=== PATIENT | female | born 1975 | race Caucasian/White ===

== ENCOUNTER → 2017-07-16 | Day surgery (SDC) | payer OTHER ==
[2017-06-23 08:32] VITALS: Ht 160 cm; Wt 86.4 kg
--- NOTE | 2017-07-15 08:27 | History and Physical: Surg Cnt ---
History & Physical Date Jul 15, 2017. Chief Complaint sinusitis History of Present Illness The patient is a 41 year old female with complaints of recurrent and chronic sinusitis Past Medical/Surgical History Medical Problems: (1) Depressive Disorder Nec (2) Diabetes-Antepartum (3) Dysmenorrhea (4) Esophageal Reflux (5) History Of Tobacco Use (6) Migraine Unspecified W/O Intract Mgrn W/O Status Migrainosus (7) Obesity, Nos (8) Uterine Leiomyoma Nos Surgical Problems: (1) Tubal Ligation Status Additional History Hepatic Disease: No Endocrine Disorder: No Kidney Disease: No Hypertension: No Heart Disease: No Bleeding Tendencies: No Infectious Diseases: No Allergies Coded Allergies: Bupropion (Verified Allergy, Unknown, HIVES, 06/23/17) Shellfish (Verified Allergy, Unknown, ITCHY, LIPS SWELL, 06/23/17) Home Medications Scheduled Cholecalciferol (Vitamin D), 1 CAP PO QAM Levothyroxine Sodium (Levothyroxine Sodium), 1 TAB PO QAM Ranitidine Hcl (Zantac), 150 MG PO QAM Triamterene/Hctz (Dyazide 37.5MG/25MG *), 1 TAB PO QAM Physical Examination Skin: warm/dry, no rash Eyes: normal inspection, EOMI, sclerae normal ENT: normal ENT inspection, pharynx normal Head: normocephalic, atraumatic Neck: supple, no adenopathy, trachea midline Respiratory/Chest: lungs clear, normal breath sounds, no respiratory distress Cardiovascular: regular rate, rhythm, no edema, no murmur Abdomen / GI: normal bowel sounds, non tender Back: normal inspection Extremities: normal inspection, normal range of motion Neurologic/Psych: no motor/sensory deficits, alert, normal reflexes, oriented x 3 Diagnosis chronic sinusitis Plan of Treatment endoscopic sinus surgery
[~2017-07-16] VITALS: Ht 160 cm; Wt 86.4 kg
[~2017-07-16] MED LIST: ACETAMINOPHEN 325 MG TAB PO PRN; AMOX875T PO; ATROPINE SULFATE 0.1 MG/ML 5ML SYR IV PRN; CEFAZOLIN 1000MG/55 ML D5W IV SCH; CEFAZOLIN 2000 MG/60 ML D5W IV SCH; CHOL200010 PO; DEXAMETHASONE SOD INJ 4 MG/ML VIAL ONE; DYZ PO; ESMOLOL HCL 10 MG/ML 10 ML VIAL ONE; EpHEDrine SULFATE INJ 50 MG/ML AMP IV PRN; EpINEphrine INJ 1MG/ML AMP 1 MG/ML AMP ONE; FENTANYL CITRATE INJ 50 MCG/1 ML 2 ML VIAL IV PRN; FENTANYL CITRATE INJ 50 MCG/1 ML 2 ML VIAL ONE; HYDROmorphone INJ 1 MG/ML SYR IV PRN; LACTATED RINGER'S 1000ML 1,000 ML IV SCH; LEVO112T4 PO; LIDO 2%/EPINEPHRINE 1:100000 20 ML VIAL INFIL ONE; LIDOCAINE 4% MPF SOAK 5 ML = 1 DOSE TOP ONE; LIDOCAINE HCL 2% 2 ML VIAL (20MG/ML) ONE; MIDAZOLAM HCL 1 MG/ML 2ML VIAL ONE; ONDA4TAB65 PO; ONDANSETRON INJ 2 MG/ML 2 ML VIAL IV PRN; ONDANSETRON INJ 2 MG/ML 2 ML VIAL ONE; PROPOFOL IV EMULSION 10 MG/ML 20 ML VIAL IV ONE; RANI150T3 PO; SODIUM CHLORIDE 0.9% 1000ML 1,000 ML IV SCH; TRAM-10 PO; TRAMADOL HCL 50 MG TAB ONE; TRIATAB3 PO
--- NOTE | 2017-07-16 07:00 | History & Physical Bridge Note ---
H&P Re-Evaluation Bridge Note: I have examined the patient, reviewed the History & Physical and in the interval since the performance of the History & Physical I have noted the following changes of clinical significance: No changes noted
--- NOTE | 2017-07-16 09:42 | [facility] Operative Report ---
Operative Report Operative Date Jul 16, 2017. Pre-Operative Diagnosis Chronic Sinusitis Post-Operative Diagnosis same Procedure(s) Performed Endoscopic Sinus Surgery, Right & Left Frontal Sinuses, Right & Left Maxillatry Sinuses, Right & Left Total Ethmoid Sinuses Surgeon Dr. Carmen Foster Analysis Lead Surgeon(s) 0 Estimated Blood Loss 50CC Findings Occluded ostiomeatal complexes with mucosal thickening obstructing the nasal frontal ducts Specimens NONE Drains none Anesthesia Gen. endotracheal Complication(s) None Disposition Recovery Room / PACU Implants 2 propel implants Indications 41-year-old female with recurrent and chronic sinusitis significant frontal headaches anosmia failed medical management requesting definitive treatment Description of Procedure The patient was brought to the operating room and placed in the supine position. General endotracheal anesthesia was induced. [employer] device was calibrated and used for the entire procedure. She was draped in the usual sterile manner. The nose was decongested using cottonoids with the topical solution of 4 mL of 4% Xylocaine mixed with 1 mL of epinephrine. Injection of 2 % Xylocaine with 1 100,000 strength epinephrine was also used. The right maxillary sinus was cannulated with the guidewire and dilated using the 6 mm balloon as was the left maxillary sinus. The left nasal frontal duct was cannulated with the guidewire and dilated using the 6 mm balloon with [employer] computer guidance. The guidewire was left in place as a marker. Frontal sinusotomy was performed by using the shaver couple with the [employer] device opening up the Phani nasi cell removing the anterior wall and then the posterior wall to expose the guidewire and the frontal sinus orifice keeping the mucosa there are intact. At this point total ethmoidectomy was performed opening up the bullae ethmoidalis going through the ground lamella into the posterior ethmoid air cells delineating the skull base superiorly and lamina papyracea laterally exonerating all the posterior and then all the anterior ethmoid air cells up to the previously dilated nasal frontal duct. The nasal frontal duct was re-dilated with the balloon. The maxillary sinus was opened by connecting the dilated maxillary ostia to a rather large posterior accessory ostia at the fontanelle of the maxillary sinus. The right frontal sinusotomy total ethmoidectomy and maxillary sinusotomy was performed in a similar manner. Propel stents were placed. The patient tolerated procedure well and was taken to the recovery area in satisfactory condition I attest to the content of the Intraoperative Record and any orders documented therein. Any exceptions are noted below.
--- NOTE | 2017-07-16 09:46 | Discharge Instructions-SurgCtr ---
Discharge Instructions Date of Service Jul 16, 2017. Visit Reason for Visit: Chronic Sinusitis Discharge Discharge Diagnosis / Problem: same Discharge Goals Goal(s): Improve disease control Activity Recommendations Activity Limitations: per Instructions/Follow-up section Anesthesia . Post Anesthesia Instructions: If you have had General Anesthesia or IV Sedation: * Do not drive today. * Resume driving when surgeon permits. * Do not make important decisions or sign legal documents today. * Call surgeon for: 1. Temperature elevations greater than 101 degrees F. 2. Uncontrollable pain. 3. Excessive bleeding. 4. Persistent nausea and vomiting. 5. Medication intolerance (nausea, vomiting or rash). * For nausea and vomiting use only clear liquids such as: tea, soda, bouillon until nausea subsides, then gradually increase diet as tolerated. * If you have any concerns or questions, call your surgeon's office. If physician is unavailable and it is an emergency, call 911 or go to the nearest emergency room. . Instructions / Follow-Up Instructions / Follow-Up ACTIVITY RECOMMENDATIONS: * Being up and around is good, but no strenuous activity, heavy lifting or physical exertion for one week. * Keep your head elevated 30 degrees when lying down or sleeping. * Do not blow your nose for 48 hours, sniff back instead. * Avoid hot showers. OVER THE COUNTER MEDICATIONS: * You may use Tylenol * Avoid aspirin or aspirin containing products, e.g. as they may increase bleeding. SPECIAL CARE INSTRUCTIONS: * Expect to have bloody drainage from your nose and/or down your throat for one to three days. Change drip pad as needed. * Begin irrigating your nose with saline solution today, at least six to ten times per day and sniff back to help remove old clots or crust. * You may experience nasal and facial congestion, pain and pressure, this is normal. * Please call with any significant and/or progressive pain, redness, swelling around the eyes, visual changes, fever of 101.5 degrees F, active bleeding or any problems or concerns. * If active bleeding occurs, spray the nose three times at one minute intervals with Afrin spray and call or cell phone: . If unable to reach the doctor, go to the nearest Emergency Department. Special Diet: * Avoid extremely hot fluids. FOLLOW UP VISIT: Follow-up Visit with Dr. Foster If not already scheduled, please call to schedule. Diet Recommendations Home Diet: no limitations Procedures Procedures Performed: Endoscopic Sinus Surgery, Right & Left Frontal Sinuses, Right & Left Maxillatry Sinuses, Right & Left Total Ethmoid Sinuses Pending Studies Studies pending at discharge: no Medical Emergencies . Who to Call and When: Medical Emergencies: If at any time you feel your situation is an emergency, please call 911 immediately. . Non-Emergent Contact Non-Emergency issues call your: Primary Care Provider . . "Provider Documentation" section prepared by Jewels Foster. . [place] Drug Monitoring Program Search Results: no issues identified
[2017-07-16 10:11] VITALS: TEMP 36.6
--- NOTE | 2017-07-16 10:46 | Anesthesia Progress Nt - [facility] ---
Anesthesia Post Op Note Date & Time Jul 16, 2017 at 10:45 Vital Signs Pain Intensity: 8.0 Vital Signs Past 12 Hours Date Time Temp Pulse Resp B/P (MAP) Pulse Ox O2 Delivery O2 Flow Rate FiO2 07/16/17 10:31 96 125/85 (98) 95 Room Air 07/16/17 10:12 103 13 96 07/16/17 10:12 103 13 07/16/17 10:11 36.6 100 12 124/79 96 Room Air 07/16/17 10:11 124/79 07/16/17 10:07 100 7 96 07/16/17 10:07 101 7 07/16/17 10:06 126/81 07/16/17 10:02 101 7 99 07/16/17 10:02 101 7 07/16/17 10:01 121/86 07/16/17 09:57 102 4 100 07/16/17 09:57 101 4 07/16/17 09:56 121/84 07/16/17 09:52 103 4 07/16/17 09:52 103 4 100 07/16/17 09:51 124/83 07/16/17 09:47 106 7 07/16/17 09:47 107 7 100 07/16/17 09:46 118/80 07/16/17 09:42 105 2 07/16/17 09:42 106 2 100 07/16/17 09:41 119/79 07/16/17 09:38 110/75 07/16/17 09:37 36.2 99 12 110/ (75) 9 Mask 4 07/16/17 07:28 36.7 83 16 115/77 (90) 97 Room Air Notes Mental Status: alert / awake / arousable, participated in evaluation Pt Amnestic to Procedure: Yes Nausea / Vomiting: adequately controlled Pain: adequately controlled, improving with treatment Airway Patency, RR, SpO2: stable & adequate BP & HR: stable & adequate Hydration State: stable & adequate Anesthetic Complications: no major complications apparent
[2017-07-16 10:58] VITALS: BP 122/84; PULSE 94; O2SAT 95
== END | disposition home or self-care (01) ==
LOC: X.SURG 06:55
PROVIDERS: ATTEND Otolaryngology
DX: J32.9 Chronic sinusitis, unspecified (principal); F32.9 Major depressive disorder, single episode, unspecified; K21.9 Gastro-esophageal reflux disease without esophagitis; E66.9 Obesity, unspecified

== ENCOUNTER 2017-07-24 01:29 | Emergency (ER) | payer OTHER ==
[~2017-07-24] VITALS: Ht 160 cm; Wt 91.2 kg
[~2017-07-24 01:29] MED LIST changes: -ACETAMINOPHEN 325 MG TAB PO PRN; -AMOX875T PO; -ATROPINE SULFATE 0.1 MG/ML 5ML SYR IV PRN; -CEFAZOLIN 1000MG/55 ML D5W IV SCH; -CEFAZOLIN 2000 MG/60 ML D5W IV SCH; -DEXAMETHASONE SOD INJ 4 MG/ML VIAL ONE; -ESMOLOL HCL 10 MG/ML 10 ML VIAL ONE; -EpHEDrine SULFATE INJ 50 MG/ML AMP IV PRN; -EpINEphrine INJ 1MG/ML AMP 1 MG/ML AMP ONE; -FENTANYL CITRATE INJ 50 MCG/1 ML 2 ML VIAL IV PRN; -FENTANYL CITRATE INJ 50 MCG/1 ML 2 ML VIAL ONE; -HYDROmorphone INJ 1 MG/ML SYR IV PRN; -LACTATED RINGER'S 1000ML 1,000 ML IV SCH; -LIDO 2%/EPINEPHRINE 1:100000 20 ML VIAL INFIL ONE; -LIDOCAINE 4% MPF SOAK 5 ML = 1 DOSE TOP ONE; -LIDOCAINE HCL 2% 2 ML VIAL (20MG/ML) ONE; -MIDAZOLAM HCL 1 MG/ML 2ML VIAL ONE; -ONDANSETRON INJ 2 MG/ML 2 ML VIAL IV PRN; -ONDANSETRON INJ 2 MG/ML 2 ML VIAL ONE; -PROPOFOL IV EMULSION 10 MG/ML 20 ML VIAL IV ONE; -SODIUM CHLORIDE 0.9% 1000ML 1,000 ML IV SCH; -TRAMADOL HCL 50 MG TAB ONE; -TRIATAB3 PO
[2017-07-24 01:33] VITALS: TEMP 36.9
[2017-07-24] MEDS ORDERED: SODIUM CHLORIDE 0.9% 1000ML 1,000 ML IV STA (01:51)
[2017-07-24 01:58] VITALS: Ht 160 cm; Wt 91.2 kg
[2017-07-24] MEDS ORDERED: OPTIRAY 320 IV PRN (02:00)
[2017-07-24] MEDS ORDERED: AMPICILLIN/SULBACTAM SOD INJ 3,000 MG in SODIUM CHLORIDE 0.9% 100ML 100 ML IV ONE (02:00)
[2017-07-24 02:38] LABS: BASO % 0.1 %; BASO ABS # 0.02 K/uL (0-0.2); COMPLETE YES; EOS % 1.1 %; HEMATOCRIT 39.3 % (37-47); IG% 0.4 %; LYMPH % 15.2 %; LYMPH ABS # 2.08 K/uL (1.2-3.4); MEAN CELL VOLUME 87.3 fL (80-100); MEAN CORPUSCULAR HGB CONC 34.4 g/dl (32-36); MEAN PLATELET VOLUME 9.2 fL (7.4-10.4); MONO % 7.5 %; NEUT % 75.7 %; PLATELET COUNT 307 K/uL (130-400); WHITE BLOOD COUNT 13.69 K/uL (4.8-10.8)
[2017-07-24 02:48] LABS: INR 0.9 (0.9-1.1); PARTIAL THROMBOPLASTIN RATIO 1.2; PROTHROMBIN TIME (PATIENT) 9.9 SECONDS (9.0-12.0)
[2017-07-24] MEDS ORDERED: TRIATAB3 PO (02:57)
[2017-07-24 03:03] LABS: BUN/CREATININE RATIO 17.3 (10-20); CALCIUM 9.1 mg/dl (8.5-10.1); CREATININE 0.74 mg/dl (0.60-1.20); POTASSIUM 3.5 mmol/L (3.5-5.1)
[2017-07-24 03:06] LABS: ALB/GLOB RATIO 0.8 (0.9-2)
[2017-07-24] MEDS ORDERED: ACETAMINOPHEN 500 MG TAB PO STA (03:19)
[2017-07-24 03:59] VITALS: PULSE 87; O2SAT 99
--- NOTE | 2017-07-24 04:13 | EMERGENCY ROOM VISIT NOTE ---
History First contact with patient: 01:39 Chief Complaint: NASAL PAIN/INJURY Stated Complaint: COMPLICATIONS FROM SINUS SERGERY History of Present Illness The patient is a 41 year old female who presents to the Emergency Room with complaints of fever with right-sided facial pain for the past few days after sinus surgery one week ago by Dr. Foster. Patient states she's had chronic sinusitis. She describes pain as throbbing, 6 out of 10. Nothing makes it better or worse. It does not radiate. She is not currently on antibiotics. Tmax 101 today. Fever started today. She did not call her ENT doctor. Patient denies neck stiffness, chest pain, dyspnea, cough, dysphagia, tongue swelling, dental problems, abdominal pain, vomiting, diarrhea. No injury to the area. Review of Systems See HPI for pertinent positives & negatives. A total of 10 systems reviewed and were otherwise negative. Past Medical/Surgical History Medical Problems: (1) Depressive Disorder Nec (2) Diabetes-Antepartum (3) Dysmenorrhea (4) Esophageal Reflux (5) History Of Tobacco Use (6) Migraine Unspecified W/O Intract Mgrn W/O Status Migrainosus (7) Obesity, Nos (8) Uterine Leiomyoma Nos Surgical Problems: (1) Tubal Ligation Status Social History Smoking Status: Former Smoker Alcohol Use: none Drug Use: none Marital Status: Occupation Status: employed Current/Historical Medications Scheduled Cholecalciferol (Vitamin D), 2,000 UNITS PO QAM Levothyroxine Sodium (Levothyroxine Sodium), 1 TAB PO QAM Ranitidine Hcl (Zantac), 150 MG PO QAM Triamterene/Hctz (Triamterene/Hctz 37.5-25MG), 1 TAB PO QAM Scheduled PRN Ondansetron Hcl (Zofran), 1 TAB PO Q6H PRN for Nausea Tramadol (Ultram), 50 MG PO Q4H PRN for Pain Physical Exam Vital Signs Date Time Temp Pulse Resp B/P (MAP) Pulse Ox O2 Delivery O2 Flow Rate FiO2 07/24/17 02:57 82 20 120/78 98 Room Air 07/24/17 01:33 36.9 102 18 142/92 96 Room Air Physical Exam VITALS: Vitals are noted on the nurse's note and reviewed by myself. Vital signs stable. GENERAL: Pleasant female anxious-appearing, in no acute distress, nondiaphoretic , well-developed well-nourished. SKIN: The skin was without rashes, erythema, edema, or bruising. There is no tenting of the skin. Capillary reflex less than 2 seconds. HEAD: Normocephalic atraumatic. Face: Tender to palpation right zygomatic area. Patient can fully open and close jaw with some minimal discomfort to the right jaw line EARS: External auditory canals clear, tympanic membranes pearly santos without erythema or effusion bilaterally. EYES: Pupils equal round and reactive to light and accommodation. Conjunctivae without injection, sclerae without icterus. Extraocular movements intact. NOSE: Patent, turbinates without inflammation or discharge. Right maxillary sinus tenderness. MOUTH: Mucous membranes moist. Pharynx without erythema or exudate. Uvula midline. Airway patent. Tongue does not deviate. Dental exam: No signs of dental abscess. No Stanton's angina NECK: Supple without nuchal rigidity. Right submandibular lymphadenopathy, no signs of meningitis. No thyromegaly. Cervical spine is nontender. No JVD. HEART: Regular rate and rhythm without murmurs gallops or rubs. LUNGS: Clear to auscultation bilaterally without wheezes, rales or rhonchi. No dullness to percussion. No retractions or accessory muscle use. ABDOMEN: Positive bowel sounds x 4. Normal tympanic percussion. Soft, nontender, without masses or organomegaly. Flores sign negative. No guarding or rebound tenderness. MUSCULOSKELETAL: No muscle atrophy, erythema, or edema noted. NEURO: Patient was alert and oriented to person place and time. Normal sensation to light and sharp touch. No focal neurological deficits. Medical Decision & Procedures Laboratory Results 07/24/17 02:23 Red Blood Count 4.50, Mean Corpuscular Volume 87.3, Mean Corpuscular Hemoglobin 30.0, Mean Corpuscular Hemoglobin Concent 34.4, Mean Platelet Volume 9.2, Neutrophils (%) (Auto) 75.7, Lymphocytes (%) (Auto) 15.2, Monocytes (%) (Auto) 7.5, Eosinophils (%) (Auto) 1.1, Basophils (%) (Auto) 0.1, Neutrophils # (Auto) 10.37, Lymphocytes # (Auto) 2.08, Monocytes # (Auto) 1.02, Eosinophils # (Auto) 0.15, Basophils # (Auto) 0.02 07/24/17 02:23 Test 07/24/17 02:23 07/24/17 02:25 White Blood Count 13.69 K/uL (4.8-10.8) Red Blood Count 4.50 M/uL (4.2-5.4) Hemoglobin 13.5 g/dL (12.0-16.0) Hematocrit 39.3 % (37-47) Mean Corpuscular Volume 87.3 fL (80-100) Mean Corpuscular Hemoglobin 30.0 pg (25-34) Mean Corpuscular Hemoglobin Concent 34.4 g/dl (32-36) Platelet Count 307 K/uL (130-400) Mean Platelet Volume 9.2 fL (7.4-10.4) Neutrophils (%) (Auto) 75.7 % Lymphocytes (%) (Auto) 15.2 % Monocytes (%) (Auto) 7.5 % Eosinophils (%) (Auto) 1.1 % Basophils (%) (Auto) 0.1 % Neutrophils # (Auto) 10.37 K/uL (1.4-6.5) Lymphocytes # (Auto) 2.08 K/uL (1.2-3.4) Monocytes # (Auto) 1.02 K/uL (0.11-0.59) Eosinophils # (Auto) 0.15 K/uL (0-0.5) Basophils # (Auto) 0.02 K/uL (0-0.2) RDW Standard Deviation 39.2 fL (36.4-46.3) RDW Coefficient of Variation 12.3 % (11.5-14.5) Immature Granulocyte % (Auto) 0.4 % Immature Granulocyte # (Auto) 0.05 K/uL (0.00-0.02) Prothrombin Time 9.9 SECONDS (9.0-12.0) Prothromb Time International Ratio 0.9 (0.9-1.1) Activated Partial Thromboplast Time 31.0 SECONDS (21.0-31.0) Partial Thromboplastin Ratio 1.2 Anion Gap 5.0 mmol/L (3-11) Est Creatinine Clear Calc Drug Dose 106.2 ml/min Estimated GFR () 115.8 Estimated GFR (Non- 99.9 BUN/Creatinine Ratio 17.3 (10-20) Calcium Level 9.1 mg/dl (8.5-10.1) Total Bilirubin 0.4 mg/dl (0.2-1) Aspartate Amino Transf (AST/SGOT) 13 U/L (15-37) Alanine Aminotransferase (ALT/SGPT) 34 U/L (12-78) Alkaline Phosphatase 94 U/L (45-117) Total Protein 7.3 gm/dl (6.4-8.2) Albumin 3.2 gm/dl (3.4-5.0) Globulin 4.1 gm/dl (2.5-4.0) Albumin/Globulin Ratio 0.8 (0.9-2) Bedside Lactic Acid Venous 0.99 mmol/L (0.90-1.70) Medications Administered Medications (Trade) Dose Ordered Sig/David Route Start Time Stop Time Status Last Admin Dose Admin Ampicillin Sodium/ Sulbactam Sodium 3000 mg/Sodium Chloride 108 ml @ 200 mls/hr ONE ONCE IV 07/24/17 02:00 07/24/17 02:32 DC 07/24/17 02:47 200 MLS/HR Sodium Chloride 1,000 ml @ 999 mls/hr Q1H1M STAT IV 07/24/17 01:51 07/24/17 02:51 DC 07/24/17 02:47 999 MLS/HR Acetaminophen (Tylenol Tab) 1,000 mg NOW STAT PO 07/24/17 03:19 07/24/17 03:21 DC 07/24/17 03:31 1,000 MG ED Course Prior records reviewed and summarized as above. Triage Nursing notes reviewed. Additional history obtained from family The patient's history was concerning for swelling and pain to face and fever after recent sinus surgery. Differential diagnosis: Etiologies such as cellulitis, abscess, postsurgical infection, dental infection , Stanton angina, meningitis, as well as others were entertained.. Physical examination: As above ER treatment provided: Unasyn, IV fluids, patient declined pain meds On reassessment the patient felt better. Diagnostics interpreted by me: The labs revealed leukocytosis. Negative lactic acid Imaging studies: CT FACIAL: Suspected ethmoidectomy. Frontoethmoidal mucosal thickening. Air-fluid levels in the maxillary sinuses, suspicious for acute sinusitis No soft tissue abscess Radiologist: Greg Gamez M.D. Study ready at 03:30 and initial results transmitted This appears to be acute sinusitis or recent surgery. Patient was placed on antibiotics. She is advised to follow-up with ENT in a day or 2 or here in the ER sooner for high fevers, lethargy, neck stiffness, worsening signs or symptoms or as needed. Patient no signs of abscess. No signs of meningitis. No signs of Stanton angina. She is well-appearing. By the evaluation outlined above emergent etiologies such as abscess, necrotizing fasciitis, DVT, as well as others were deemed relatively unlikely. The pt informed about the findings as listed above. All questions were answered and pleased with the treatment. Return instructions were outlined and the patient was discharged in stable condition. Outpatient prescription management: Augmentin Referral: The patient was referred back to ENT for follow-up in 2 to 3 days for a recheck of the current condition. Case reviewed by attending. Medical Decision As above Medication Reconcilliation Current Medication List: was personally reviewed by me Blood Pressure Screening Patient's blood pressure: Elevated blood pressure Blood pressure disposition: Elevated BP felt to be situational Impression Primary Impression: Acute maxillary sinusitis Departure Information Dispostion Home / Self-Care Condition GOOD Referrals Carmen Jensen D.O. (PCP) Patient Instructions My [facility] Additional Instructions Amoxicillin Clavulanate (Augmentin) 875mg: Take one pill twice daily for 10 days for your infection. All antibiotics can cause diarrhea. If this occurs and you feel worse or it does not resolve in 1-2 days follow up with your doctor or return to the Emergency Department as this could be signs of serious underlying problems. Any medication can cause an allergic reaction, stop the pills immediately and return to the ER for rash, hives, breathing difficulties, or swelling. Acetaminophen(Tylenol) may be used for fever or pain. Use 1000mg every six hours as needed. Avoid using more than 3000mg in a 24 hour period. (AND/OR) Ibuprofen(Motrin, Advil) may be used for fever or pain. Use 600mg every six hours as needed. Take with food. Avoid using more than 2400mg in a 24 hour period. Do not use 2400mg per day for more than three consecutive days without physician direction. Prolonged inappropriate use can lead to stomach upset or ulcers. Pseudoephedrine(Sudaphed): 30-60mg every 6 hours as needed for nasal congestion. Do not take this with other stimulant products or supplements. Rest and drink plenty of fluids. Controlling your fever with Tylenol and Ibuprofen as above will make you feel better. Wash your hands after nose blowing, sneezing, or coughing. Most germs are spread through contact, therefore improper hygiene may result in your close contacts and loved ones becoming ill just like you. Continue current medications. Return to the ER for severe headache, neck stiffness, chest pain, difficulty breathing, fevers, vomiting, worsening of your condition, or as needed. Follow up with your ENT in one to 2 days for a recheck of your current condition. Problem Qualifiers Primary Impression: Acute maxillary sinusitis Recurrence: not specified as recurrent Qualified Codes: J01.00 - Acute maxillary sinusitis, unspecified
[2017-07-24] MEDS ORDERED: AMOXICIL/CLAVU 875MG HOME PACK PO ONE (04:15)
[2017-07-24] MEDS ORDERED: AMOX875T PO (04:16)
[2017-07-24 04:23] VITALS: BP 129/83
--- NOTE | 2017-07-24 07:40 | DIAGNOSTIC IMAGING REPORT ---
MAXILLOFACIAL CT WITH CONTRAST CLINICAL HISTORY: Recent sinus surgery. Fever with facial pain. COMPARISON STUDY: Sinus CT September 15, 2016. TECHNIQUE: Maxillofacial CT was performed following intravenous injection of 92 cc of Optiray 320 IV. Sagittal and coronal reformats were viewed. FINDINGS: Visualized portions of the intracranial contents are unremarkable. Mastoid air cells are clear. There is no fluid within the middle ears. Orbits are unremarkable. Post operative findings are noted consistent with bilateral ethmoidectomies. There is also resection of a portion of the medial mott of both maxillary sinuses. Both maxillary sinuses are partially opacified and contain air-fluid levels. There is moderate mucosal thickening of the ethmoid sinuses with mild mucosal thickening of the sphenoid and frontal sinuses. IMPRESSION: 1. Bilateral maxillary sinus air-fluid levels with moderate mucosal thickening of the remainder of the sinuses. The findings are nonspecific in the postoperative period but may reflect acute sinusitis. 2. Postoperative findings within the sinuses, as described above. Electronically signed by: Handy Ramirez M.D. 07/24/2017 7:39 AM Dictated Date/Time: 07/24/2017 7:34 AM
== END 2017-07-24 04:28 | disposition home or self-care (01) ==
LOC: C.EDB 01:31
DX: J01.00 Acute maxillary sinusitis, unspecified (principal); F32.9 Major depressive disorder, single episode, unspecified; E11.9 Type 2 diabetes mellitus without complications; N94.6 Dysmenorrhea, unspecified; K21.9 Gastro-esophageal reflux disease without esophagitis; E66.9 Obesity, unspecified; Z87.891 Personal history of nicotine dependence

== ENCOUNTER → 2017-09-24 | Outpatient (CLI) | payer OTHER ==
[~2017-09-24] MED LIST changes: -DYZ PO; +TRIATAB3 PO
[2017-09-24 17:21] LABS: BASO % 0.2 %; BASO ABS # 0.02 K/uL (0-0.2); COMPLETE YES; EOS % 1.8 %; IG% 0.2 %; LYMPH % 29.6 %; LYMPH ABS # 2.51 K/uL (1.2-3.4); MEAN CELL VOLUME 86.3 fL (80-100); MEAN CORPUSCULAR HEMOGLOBIN 29.5 pg (25-34); MEAN CORPUSCULAR HGB CONC 34.2 g/dl (32-36); MEAN PLATELET VOLUME 10.1 fL (7.4-10.4); MONO % 7.9 %; NEUT % 60.3 %; PLATELET COUNT 314 K/uL (130-400); RED BLOOD COUNT 4.98 M/uL (4.2-5.4); WHITE BLOOD COUNT 8.47 K/uL (4.8-10.8)
[2017-09-24 18:00] LABS: ALT/SGPT 23 U/L (12-78); AST/SGOT 10 U/L (15-37); BLOOD UREA NITROGEN 13 mg/dl (7-18); BUN/CREATININE RATIO 18.6 (10-20); CALCIUM 8.7 mg/dl (8.5-10.1); CARBON DIOXIDE 31 mmol/L (21-32); CHLORIDE 102 mmol/L (98-107); CREATININE 0.72 mg/dl (0.60-1.20); GLUCOSE 69 mg/dl (70-99); POTASSIUM 3.3 mmol/L (3.5-5.1); SODIUM 138 mmol/L (136-145)
[2017-09-24 18:10] LABS: ALKALINE PHOSPHATASE 93 U/L (45-117)
== END | disposition home or self-care (01) ==
LOC: C.LAB1850 16:13
PROVIDERS: ATTEND Family Medicine
DX: E89.0 Postprocedural hypothyroidism (principal); R53.83 Other fatigue; E55.9 Vitamin D deficiency, unspecified

== ENCOUNTER → 2017-11-24 | Outpatient (CLI) | payer OTHER | END | disposition home or self-care (01) | LOC: C.LAB1850 12:05 | PROVIDERS: ATTEND Obstetrics & Gynecology | DX: N95.1 Menopausal and female climacteric states (principal) ==

== ENCOUNTER → 2017-11-30 | Outpatient (CLI) | payer OTHER ==
--- NOTE | 2017-11-30 14:48 | MAMMOGRAPHY REPORT ---
BILATERAL DIGITAL DIAGNOSTIC MAMMOGRAM TOMOSYNTHESIS WITH CAD AND TARGETED LEFT ULTRASOUND: 11/30/2017 CLINICAL HISTORY: 42-year-old woman presents after she noticed "sensitivity"in her left breast. She reports her provider also found a lump on physical exam. Based on provider notes, the patient was mo st lumpy in the 12:00 left breast. TECHNIQUE: Bilateral breast tomosynthesis in addition to standard 2D mammography was performed. Curre nt study was also evaluated with a Computer Aided Detection (CAD) system. COMPARISON: Comparison is made to exams dated: 05/22/2015 mammogram and 05/14/2015 mammogram. BREAST COMPOSITION: There are scattered areas of fibroglandular density in both breasts. FINDINGS: A triangle or skin palpable marker was placed in the 11:00 anterior left breast in the area of pain and sensitivity pointed out by the patient. No new suspicious mass, architectural distortio n, asymmetry or cluster of microcalcifications is seen in the breasts, with particular attention to t he area of concern in the upper inner anterior left breast. Targeted ultrasound was performed in the area of sensitivity pointed out by the patient, which the pa tient pointed out the 7:00 to 8:00 periareolar left breast, but also throughout the remainder of the medial left breast including the 12:00 axis based on lumpiness felt by the patient's provider. Sonog raphically normal tissue is identified on ultrasound, without evidence of a discrete/suspicious solid or cystic mass. IMPRESSION: ACR BI-RADS CATEGORY 2: BENIGN, TARGETED ULTRASOUND ACR BI-RADS CATEGORY 2: BENIGN Stable bilateral mammograms. No mammographic evidence of malignancy. No mammographic or targeted so nographic abnormality or evidence of malignancy in the area of sensitivity in the medial left breast or area of lumpiness in the 12:00 left breast, palpated by the patient's provider. Therefore, contin ued clinical follow-up is recommended. It should be noted that biopsy of a clinically suspicious mas s should not pre-precluded by negative imaging. Otherwise recommend bilateral screening tomosynthesi s mammography in one year. These results and recommendations were discussed with the patient at the time of the exam. Approximately 10% of breast cancers are not detected with mammography. A negative mammographic report should not delay biopsy if a clinically suggestive mass is present. Teresita Gutierrez M.D. ay/:11/30/2017 12:23:19 Inventory Checker: Isabel AMARO)(eRma), [facility] letter sent: Normal /2 BI-RADS Code: ACR BI-RADS Category 2: Benign Ultrasound BI-RADS: ACR BI-RADS Category 2: Benign
== END | disposition home or self-care (01) ==
LOC: C.MAMM 09:02
PROVIDERS: ATTEND Obstetrics & Gynecology
DX: N64.4 Mastodynia (principal); N63.20 Unspecified lump in the left breast, unspecified quadrant

== ENCOUNTER 2018-06-27 10:45 | Emergency (ER) | payer OTHER ==
[~2018-06-27] VITALS: Ht 157.5 cm; Wt 78.4 kg
[2018-06-27 10:53] VITALS: TEMP 36.7; Ht 157.5 cm; Wt 78.4 kg
[2018-06-27] MEDS ORDERED: OPTIRAY 320 IV PRN (11:30)
[2018-06-27] MEDS ORDERED: TOPI25TA99 PO (11:36)
[2018-06-27 11:37] LABS: BASO % 0.1 %; BASO ABS # 0.01 K/uL (0-0.2); EOS % 0.7 %; EOS ABS # 0.07 K/uL (0-0.5); HEMATOCRIT 40.4 % (37-47); HEMOGLOBIN 14.2 g/dL (12.0-16.0); IG# 0.02 K/uL (0.00-0.02); LYMPH % 18.9 %; LYMPH ABS # 2.03 K/uL (1.2-3.4); MEAN CELL VOLUME 84.5 fL (80-100); MEAN CORPUSCULAR HEMOGLOBIN 29.7 pg (25-34); MEAN CORPUSCULAR HGB CONC 35.1 g/dl (32-36); MEAN PLATELET VOLUME 9.7 fL (7.4-10.4); MONO % 7.4 %; MONO ABS # 0.79 K/uL (0.11-0.59); NEUT % 72.7 %; NEUT ABS # 7.81 K/uL (1.4-6.5); PLATELET COUNT 268 K/uL (130-400); RED CELL DISTRIBUTION WIDTH CV 12.3 % (11.5-14.5); RED CELL DISTRIBUTION WIDTH SD 37.6 fL (36.4-46.3); WHITE BLOOD COUNT 10.73 K/uL (4.8-10.8)
--- NOTE | 2018-06-27 11:49 | EMERGENCY ROOM VISIT NOTE ---
History First contact with patient: 11:00 Chief Complaint: ABDOMINAL PAIN Stated Complaint: LLQ ABD PAIN AND SWELLING Nursing Triage Summary: Abdominal pain since yesterday evening. Pain in left lower quad. Denies N/V/D. Took 4 ibuprofen this morning, felt that this was somewhat helpful. History of Present Illness The patient is a 42 year old female who presents to the Emergency Room via private vehicle with complaints of "left lower quadrant abdominal pain and swelling". The patient states that yesterday evening she began with left lower quadrant abdominal pain. She notes that it was worse last night and then this morning she took 4 ibuprofen and notes that her pain has subsided somewhat but is still quite painful. She notes that the area in the left lower quadrant of her abdomen feels swollen. She denies any fevers, chills, nausea, vomiting, diarrhea, trauma or injury. She denies any dysuria, chest pain, shortness of breath, abdominal surgeries other than a hysterectomy. She denies any history of diverticulitis. She denies any vaginal bleeding. Review of Systems A complete 10-point Review of Systems was discussed with the patient, with pertinent positives and negatives listed in the History of Present Illness. All remaining Review of Systems questions can be considered negative unless otherwise specified. Past Medical/Surgical History Medical Problems: (1) Depressive Disorder Nec (2) Diabetes-Antepartum (3) Dysmenorrhea (4) Esophageal Reflux (5) History Of Tobacco Use (6) Migraine Unspecified W/O Intract Mgrn W/O Status Migrainosus (7) Obesity, Nos (8) Uterine Leiomyoma Nos Surgical Problems: (1) Tubal Ligation Status Social History Smoking Status: Former Smoker Alcohol Use: none Drug Use: none Marital Status: Occupation Status: employed Current/Historical Medications Scheduled Amoxicillin & Pot Clavulanate (Augmentin 875-125 mg), 1 TAB PO BID Levothyroxine Sodium (Levothyroxine Sodium), 112 MCG PO QAM Potassium Chloride (Micro-K Ext Rel), 20 MEQ PO DAILY Topiramate (Topamax ), 25 MG PO DAILY Triamterene/Hctz (Triamterene/Hctz 37.5-25MG), 1 TAB PO QAM Physical Exam Vital Signs Date Time Temp Pulse Resp B/P (MAP) Pulse Ox O2 Delivery O2 Flow Rate FiO2 06/27/18 15:28 81 115/80 99 8/12/18 14:31 65 14 109/73 99 Room Air 06/27/18 12:56 82 126/72 99 Room Air 06/27/18 10:53 36.7 106 20 120/83 97 Room Air Physical Exam VITAL SIGNS - Vital signs and nursing notes were reviewed. Stable. Afebrile. GENERAL -42-year-old female appearing her stated age who is in no acute distress. Communicates well with provider and answers questions appropriately. SKIN - Without rashes. No meningeal or petechial rash. HEAD - NC/AT. EYES - PERRL with EOMI bilaterally. Sclera anicteric. EARS - No deformities of external structures noted on gross examination bilaterally. NOSE - Midline and without cyanosis. No epistaxis or purulent drainage noted. MOUTH/OROPHARYNX - Without perioral cyanosis. LUNGS - Chest wall symmetric without accessory muscle use, intercostals retractions, or central cyanosis. Normal vesicular breath sounds CTA B/L. No wheezes, rales, or rhonchi appreciated. CARDIAC - RRR with S1/S2. No murmur, rubs, or gallops appreciated. ABDOMEN - Abdominal contour normal without pulsations or visible masses. BS normoactive all four quadrants. There is left lower quadrant tenderness as well as rebound tenderness. Minimal tenderness in the right lower quadrant. No upper quadrant tenderness noted. Abdomen is soft and nonrigid. EXTREMITIES - No clubbing or peripheral cyanosis. No pretibial edema present. +5 /5 strength noted in UE/LE bilaterally. NEUROLOGIC - Cranial nerves II through XII grossly intact. Sensory intact to light touch throughout. PSYCH - A&Ox3 and cooperates fully with examiner. Pt is very pleasant and interacts well with examiner. Medical Decision & Procedures ER Provider Diagnostic Interpretation: CT OF THE ABDOMEN AND PELVIS WITH CONTRAST CLINICAL HISTORY: Left lower quadrant abdominal pain and tenderness. COMPARISON STUDY: None. TECHNIQUE: Following IV administration of 93 mL of Optiray-320, axial images of the abdomen and pelvis were obtained from the lung bases to the proximal femurs. Images were reviewed in the axial, sagittal, and coronal planes. IV contrast was administered without complication. A dose lowering technique was utilized adhering to the principles of ALARA. Oral contrast was administered. CT DOSE: 857.47 mGycm FINDINGS: Lung bases are clear. No pneumatosis, free air or portal venous gas is present. The liver, spleen, adrenal glands and pancreas are normal. There is no biliary or pancreatic ductal dilatation. No hydronephrosis is present. Note is made of left colon diverticulosis. There is an inflamed diverticulum at the junction of the descending colon and sigmoid colon with mild adjacent infiltration. There is no free air or abscess. The ovaries are not enlarged. The appendix is normal. No suspicious osseous lesion is present. IMPRESSION: Mild acute diverticulitis at the junction of the descending colon and sigmoid colon. Mild pericolonic infiltration. No free air or abscess. Electronically signed by: Handy Ramirez M.D. 06/27/2018 2:19 PM Dictated Date/Time: 06/27/2018 2:15 PM Laboratory Results 06/27/18 11:25 Red Blood Count 4.78, Mean Corpuscular Volume 84.5, Mean Corpuscular Hemoglobin 29.7, Mean Corpuscular Hemoglobin Concent 35.1, Mean Platelet Volume 9.7, Neutrophils (%) (Auto) 72.7, Lymphocytes (%) (Auto) 18.9, Monocytes (%) (Auto) 7.4, Eosinophils (%) (Auto) 0.7, Basophils (%) (Auto) 0.1, Neutrophils # (Auto) 7.81, Lymphocytes # (Auto) 2.03, Monocytes # (Auto) 0.79, Eosinophils # (Auto) 0.07, Basophils # (Auto) 0.01 06/27/18 11:25 Test 06/27/18 11:11 06/27/18 11:25 Urine Color DK YELLOW Urine Appearance CLOUDY (CLEAR) Urine pH 7.0 (4.5-7.5) Urine Specific [place] 1.030 (1.000-1.030) Urine Protein 1+ (NEG) Urine Glucose (UA) NEG (NEG) Urine Ketones TRACE (NEG) Urine Occult Blood NEG (NEG) Urine Nitrite NEG (NEG) Urine Bilirubin NEG (NEG) Urine Urobilinogen NEG (NEG) Urine Leukocyte Esterase TRACE (NEG) Urine WBC (Auto) 5-10 /hpf (0-5) Urine RBC (Auto) 0-4 /hpf (0-4) Urine Hyaline Casts (Auto) 1-5 /lpf (0-5) Urine Epithelial Cells (Auto) >30 /lpf (0-5) Urine Bacteria (Auto) 2+ (NEG) Urine Renal Epithelial Cells /lpf (0-5) Urine Pathogenic Casts /lpf (0) Urine Mucus PRESENT (NONE PRSENT) White Blood Count 10.73 K/uL (4.8-10.8) Red Blood Count 4.78 M/uL (4.2-5.4) Hemoglobin 14.2 g/dL (12.0-16.0) Hematocrit 40.4 % (37-47) Mean Corpuscular Volume 84.5 fL (80-100) Mean Corpuscular Hemoglobin 29.7 pg (25-34) Mean Corpuscular Hemoglobin Concent 35.1 g/dl (32-36) Platelet Count 268 K/uL (130-400) Mean Platelet Volume 9.7 fL (7.4-10.4) Neutrophils (%) (Auto) 72.7 % Lymphocytes (%) (Auto) 18.9 % Monocytes (%) (Auto) 7.4 % Eosinophils (%) (Auto) 0.7 % Basophils (%) (Auto) 0.1 % Neutrophils # (Auto) 7.81 K/uL (1.4-6.5) Lymphocytes # (Auto) 2.03 K/uL (1.2-3.4) Monocytes # (Auto) 0.79 K/uL (0.11-0.59) Eosinophils # (Auto) 0.07 K/uL (0-0.5) Basophils # (Auto) 0.01 K/uL (0-0.2) RDW Standard Deviation 37.6 fL (36.4-46.3) RDW Coefficient of Variation 12.3 % (11.5-14.5) Immature Granulocyte % (Auto) 0.2 % Immature Granulocyte # (Auto) 0.02 K/uL (0.00-0.02) Anion Gap 7.0 mmol/L (3-11) Est Creatinine Clear Calc Drug Dose 95.1 ml/min Estimated GFR () 115.0 Estimated GFR (Non- 99.2 BUN/Creatinine Ratio 19.9 (10-20) Calcium Level 8.9 mg/dl (8.5-10.1) Magnesium Level 2.2 mg/dl (1.8-2.4) Total Bilirubin 0.8 mg/dl (0.2-1) Aspartate Amino Transf (AST/SGOT) 19 U/L (15-37) Alanine Aminotransferase (ALT/SGPT) 24 U/L (12-78) Alkaline Phosphatase 82 U/L (45-117) Total Protein 7.4 gm/dl (6.4-8.2) Albumin 3.6 gm/dl (3.4-5.0) Globulin 3.8 gm/dl (2.5-4.0) Albumin/Globulin Ratio 1.0 (0.9-2) Lipase 99 U/L (73-393) Medications Administered Medications (Trade) Dose Ordered Sig/David Route Start Time Stop Time Status Last Admin Dose Admin Ketorolac Tromethamine (Toradol Inj) 30 mg NOW STAT IV 06/27/18 13:02 06/27/18 13:03 DC 06/27/18 13:09 30 MG Potassium Chloride (Klor-Con M10) 40 meq NOW STAT PO 06/27/18 14:45 06/27/18 14:46 DC 06/27/18 15:23 40 MEQ Medical Decision Patient was seen and evaluated as above in room B03. Review was performed of nursing notes and vital signs. After obtaining a thorough history and physical examination the above work up was performed. She presents to us today with left lower quadrant abdominal pain. Examination is concerning/consistent with that of likely diverticulitis. Given that she does not have any recent imaging , I believe that a CT scan with abdomen and pelvis of this area is warranted to verify/confirm. There is no leukocytosis or concerning anemia. There is hypokalemia which was replenished with 40 mEq of potassium chloride. Important note is that she is on a potassium sparing diuretic. The CT scan results are as above. There is diverticulitis. No perforation. I believe she is a candidate for outpatient management given her for stable vital signs, afebrile state and presentation. She declined pain medication. I educated her upon management of the diverticulitis. She is to return with worsening. I offered her Cipro/Flagyl versus Augmentin. Decision was made to give Augmentin. She will also be given a prescription for potassium after I discussed the case with the attending physician. She was educated that this could be elevated more with medication therefore she is to have this rechecked with the family doctor in 7 days. The patient was educated upon management, educated upon todays findings/results, educated upon symptoms in which to return, had questions answered prior to discharge, and was discharged home in good condition. Case was discussed with the attending physician. In the evaluation and treatment of this patient the following differential diagnoses were entertained: Diverticulitis, appendicitis, perforated abscess, acute abdomen, UTI, ovarian torsion, ovarian cyst, among others. Impression Primary Impression: Diverticulitis Additional Impression: Hypokalemia Departure Information Dispostion Home / Self-Care Condition GOOD Prescriptions Potassium Chloride (Micro-K Ext Rel) 10 Meq Capcr 20 MEQ PO DAILY for 14 Days, #28 CAP Prov: Roberto Richard PA-C 06/27/18 Amoxicillin & Pot Clavulanate (Augmentin 875-125 mg) 1 Tab Tab 1 TAB PO BID for 10 Days, #20 TAB Prov: Roberto Richard PA-C 06/27/18 Referrals Carmen Jensen D.O. (PCP) Patient Instructions My [facility] Additional Instructions You have been treated in the Emergency Department your Abdominal Pain. The CT scan shows that you have diverticulitis. The potassium is slightly low here today. We have to be very careful how we replace her potassium as you are on a potassium sparing diuretic. We were given 40 mEq here, and I recommend 20 mEq daily for 2 weeks. The family doctor should repeat this potassium level within 7 days. Augmentin 1 tablet every 12 hours for 10 days for the diverticulitis. Please consume a bland diet for the next few days to help ease the abdominal pain and increase healing. For pain control, you can use the following ieff-obh-zxeprea medicines (if >12 yo): - Regular strength (325mg/tab) Tylenol (acetaminophen) 2 tabs every 4-6 hours as needed. Do not exceed 12 tablets in a 24 hour period. Avoid taking more than 3 grams (3000 mg) of Tylenol per day. This includes any other sources of acetaminophen you may take on a regular basis. - Regular strength (200 mg/tab) Advil (ibuprofen) 1-2 tabs every 4-6 hours as needed. Do not exceed a dose of 3200 mg per day. Drink plenty of water and stay well hydrated. As with any trip to the Emergency Department, you should follow-up with your Primary Care Provider from today's visit. Return to the emergency department if your symptoms persist despite treatment plan outlined above or if the following symptoms occur: increased fevers, chills , worsening nausea/vomiting, blood in your stool or urine. Problem Qualifiers
[2018-06-27 11:58] LABS: ALBUMIN 3.6 gm/dl (3.4-5.0); CALCIUM 8.9 mg/dl (8.5-10.1); CREATININE 0.74 mg/dl (0.60-1.20); POTASSIUM 3.2 mmol/L (3.5-5.1); TOTAL PROTEIN 7.4 gm/dl (6.4-8.2)
[2018-06-27] MEDS ORDERED: KETOROLAC TROMETHAMINE 30 MG/ML VIAL IV STA (13:02)
--- NOTE | 2018-06-27 14:20 | DIAGNOSTIC IMAGING REPORT ---
CT OF THE ABDOMEN AND PELVIS WITH CONTRAST CLINICAL HISTORY: Left lower quadrant abdominal pain and tenderness. COMPARISON STUDY: None. TECHNIQUE: Following IV administration of 93 mL of Optiray-320, axial images of the abdomen and pelvis were obtained from the lung bases to the proximal femurs. Images were reviewed in the axial, sagittal, and coronal planes. IV contrast was administered without complication. A dose lowering technique was utilized adhering to the principles of ALARA. Oral contrast was administered. CT DOSE: 857.47 mGycm FINDINGS: Lung bases are clear. No pneumatosis, free air or portal venous gas is present. The liver, spleen, adrenal glands and pancreas are normal. There is no biliary or pancreatic ductal dilatation. No hydronephrosis is present. Note is made of left colon diverticulosis. There is an inflamed diverticulum at the junction of the descending colon and sigmoid colon with mild adjacent infiltration. There is no free air or abscess. The ovaries are not enlarged. The appendix is normal. No suspicious osseous lesion is present. IMPRESSION: Mild acute diverticulitis at the junction of the descending colon and sigmoid colon. Mild pericolonic infiltration. No free air or abscess. Electronically signed by: Handy Ramirez M.D. 06/27/2018 2:19 PM Dictated Date/Time: 06/27/2018 2:15 PM
[2018-06-27] MEDS ORDERED: POTASSIUM CHLORIDE 10 MEQ TABCR PO STA (14:45)
[2018-06-27] MEDS ORDERED: AMOX875T PO (14:57)
[2018-06-27] MEDS ORDERED: POTA10CA28 PO (14:57)
[2018-06-27 15:28] VITALS: BP 115/80; PULSE 81; O2SAT 99
== END 2018-06-27 15:29 | disposition home or self-care (01) ==
LOC: C.EDB 10:46
DX: K57.92 Diverticulitis of intestine, part unspecified, without perforation or abscess without bleeding (principal); E87.6 Hypokalemia; F32.9 Major depressive disorder, single episode, unspecified; K21.9 Gastro-esophageal reflux disease without esophagitis; E66.9 Obesity, unspecified; Z87.891 Personal history of nicotine dependence

== ENCOUNTER → 2018-07-05 | Outpatient (CLI) | payer OTHER ==
[~2018-07-05] MED LIST changes: +AMOX875T PO; -CHOL200010 PO; -ONDA4TAB65 PO; +POTA10CA28 PO; -RANI150T3 PO; +TOPI25TA99 PO; -TRAM-10 PO
[2018-07-05 15:13] LABS: ALBUMIN 3.6 gm/dl (3.4-5.0); ALKALINE PHOSPHATASE 71 U/L (45-117); ALT/SGPT 24 U/L (12-78); AST/SGOT 13 U/L (15-37); BLOOD UREA NITROGEN 16 mg/dl (7-18); CALCIUM 8.5 mg/dl (8.5-10.1); CARBON DIOXIDE 26 mmol/L (21-32); CREATININE 0.77 mg/dl (0.60-1.20); GLUCOSE 94 mg/dl (70-99); POTASSIUM 3.1 mmol/L (3.5-5.1); SODIUM 139 mmol/L (136-145); TOTAL PROTEIN 7.5 gm/dl (6.4-8.2)
== END | disposition home or self-care (01) ==
LOC: C.LAB1850 13:21
PROVIDERS: ATTEND Neuromusculoskeletal Medicine & OMM
DX: E87.6 Hypokalemia (principal); E89.0 Postprocedural hypothyroidism

== ENCOUNTER 2024-08-04 05:42 | Inpatient (IN) ==
--- NOTE | 2024-07-26 09:17 | Anesthesiology Consultation ---
Date of Service July 26, 2024 Assessment & Plan Chart Review Chart Review: Acceptable Risk for Surgery and Patient NOT seen in Pre Admission Testing Consults Requested none ASA ASA2 Proposed Anesthesia Anesthesia Type: General History Surgery Operation Date: 08/04/24 12:05 Proposed Procedures p Laparoscopic Sigmoid Colectomy, Cholecystectomy - González Gray, Height/Weight Height: 5 ft 3 in Weight: 70.307 kg Allergies Allergy/AdvReac Type Severity Reaction Status Date / Time shellfish derived Allergy Severe Itchy/Lip Verified 07/25/24 11:42 Swelling/Throat Swelling amoxicillin [From Augmentin] AdvReac Severe Chest Pain Verified 07/25/24 11:42 clavulanic acid AdvReac Severe Chest Pain Verified 07/25/24 11:42 [From Augmentin] Medications Home Medications Medication Instructions Recorded Confirmed Last Taken omeprazole 20 mg capsule,delayed 20 mg PO DAILY PRN Acid Reflux 02/08/24 07/25/24 02/29/24 release valacyclovir 1 gram tablet 1,000 mg PO DAILY PRN Cold Sores 02/08/24 07/25/24 Unknown levocetirizine 5 mg tablet (Xyzal) 5 mg PO QAM 02/25/24 07/25/24 03/06/24 levothyroxine 125 mcg tablet 125 mcg PO QAM 02/25/24 07/25/24 03/07/24 (Synthroid) triamterene 37.5 1 tab PO QAM 02/25/24 07/25/24 03/06/24 mg-hydrochlorothiazide 25 mg tablet topiramate 50 mg tablet 50 mg PO HS #30 tabs 05/23/24 07/25/24 Unknown phentermine 37.5 mg tablet 37.5 mg PO QAM 07/25/24 07/25/24 Unknown tirzepatide (weight loss) 15 15 mg subcut Q7D 07/25/24 07/25/24 07/25/24 mg/0.5 mL subcutaneous pen injector (Zepbound) Past Medical History Medical History Migraine Gallstones Hypothyroidism GERD (gastroesophageal reflux disease) Diverticulosis large intestine w/o perforation or abscess w/o bleeding Depression with anxiety hx Family history of anesthesia complication daugther-"blood pressure kept dropping throughout procedure, had to keep giving medicine to bring it up" Graves disease (2013) s/p radioactive iodine treatment Exercise / Class Metabolic Activity II 4-5 Yardwork/Stairs/Walk up hill Past Family History Family History Grandfather Alzheimer disease Lung cancer Grandmother Alzheimer disease Myocardial infarction Heart disease Uncle Colorectal cancer Mother Heart disease Other No family history of adverse response to anesthesia Denies family history of Ovarian cancer Prostate cancer Breast cancer Past Surgical History Surgical History History of esophagogastroduodenoscopy (EGD) History of endometrial ablation History of carpal tunnel release RT H/O sinus surgery History of colonoscopy History of wisdom tooth extraction History of total hysterectomy History of tubal ligation Past Anesthesia History No Hx of Anesthesia Complications and No Family Hx of Anesthesia Complications History of PONV No Hx of PONV and No Hx of Motion Sickness Social History Smoking Status: Never smoker tobacco type: cigarettes Do You Dip or Chew Tobacco: No Hx Alcohol Use: Yes Alcohol type: hard liquor alcohol intake frequency: holidays/special occasions only Hx Substance Use: No substance use type: does not use Testing Electrocardiogram Date: 05/02/21 Findings: + NSR @ (@ 78)
[2024-08-04] MEDS: metroNIDAZOLE 500 MG/100 ML BAG IV SCH ×2 (06:05→14:35)
[2024-08-04] MEDS: LACTATED RINGER'S 1,000 ML IV SCH ×2 (06:05→12:43)
[2024-08-04] MEDS ORDERED: MIDAZOLAM HCL 1 MG/ML 2ML VIAL ONE (06:47)
[2024-08-04] MEDS ORDERED: fentaNYL citrate PF 100 MCG/2 ML VIAL ONE (06:52)
[2024-08-04] MEDS ORDERED: DROPERIDOL 5 MG/2 ML VIAL ONE (06:53)
[2024-08-04] MEDS ORDERED: KETAMINE HCL 10MG/ML SYR ONE (06:54)
[2024-08-04] MEDS ORDERED: DEXAMETHASONE SOD INJ 4 MG/ML VIAL ONE (06:55)
[2024-08-04] MEDS ORDERED: PROPOFOL IV EMULSION 10 MG/ML 20 ML VIAL IV ONE ×3 (06:55→08:19)
[2024-08-04] MEDS ORDERED: ONDANSETRON INJ 2 MG/ML 2 ML VIAL ONE ×2 (06:55→08:43)
[2024-08-04] MEDS ORDERED: SODIUM CHLORIDE 0.9% PF INJ 10 ML VIAL ONE (06:55)
[2024-08-04] MEDS ORDERED: ROCURONIUM BROMIDE 10 MG/ML 5 ML VIAL IV ONE ×2 (06:55→08:17)
[2024-08-04] MEDS ORDERED: LIDOCAINE 2% 2 ML VIAL/AMP(20MG/ML) INFIL ONE (06:55)
[2024-08-04] MEDS ORDERED: ACETAMINOPHEN 1000 MG/100 ML IV IV ONE (06:56)
[2024-08-04] MEDS ORDERED: ePHEDrine sulfate 50 MG/ML AMP IV PRN (07:02)
[2024-08-04] MEDS ORDERED: ONDANSETRON INJ 2 MG/ML 2 ML VIAL IV PRN ×2 (07:02→11:44)
[2024-08-04] MEDS ORDERED: ATROPINE SULFATE 0.1 MG/ML 10ML SYR IV PRN (07:02)
[2024-08-04] MEDS ORDERED: HYDROmorphone INJ 2 MG/ML SYR/VIAL IV PRN (07:02)
[2024-08-04] MEDS ORDERED: PROMETHAZINE HCL 6.25 MG in SODIUM CHLORIDE 0.9% 50 ML IV PRN (07:02)
--- NOTE | 2024-08-04 07:04 | History & Physical Report ---
Date of Service August 04, 2024 Assessment & Plan (1) Diverticulosis large intestine w/o perforation or abscess w/o bleeding: Plan: discussed options/risks. questions answered. will proceed today with lap sigmoid colectomy as well as cholecystectomy. (2) Gallstones: History of Present Illness Primary Care Provider: Bharati Ramirez MD pt here for lap sigmoid for diverticular disease as well as cholecystectomy.. no major changes to her health history since I had seen her last in the office Allergies Allergy/AdvReac Type Severity Reaction Status Date / Time shellfish derived Allergy Severe Itchy/Lip Verified 08/04/24 06:08 Swelling/Throat Swelling amoxicillin [From Augmentin] AdvReac Severe Chest Pain Verified 08/04/24 06:08 clavulanic acid AdvReac Severe Chest Pain Verified 08/04/24 06:08 [From Augmentin] Home Medications Medication Instructions Recorded Confirmed Type omeprazole 20 mg capsule,delayed 20 mg PO DAILY PRN Acid Reflux 02/08/24 08/04/24 History release valacyclovir 1 gram tablet 1,000 mg PO DAILY PRN Cold Sores 02/08/24 08/04/24 History levocetirizine 5 mg tablet (Xyzal) 5 mg PO QAM 02/25/24 08/04/24 History triamterene 37.5 1 tab PO QAM 02/25/24 08/04/24 History mg-hydrochlorothiazide 25 mg tablet topiramate 50 mg tablet 50 mg PO HS #30 tabs 05/23/24 08/04/24 Rx phentermine 37.5 mg tablet 37.5 mg PO QAM 07/25/24 08/04/24 History tirzepatide (weight loss) 15 15 mg subcut Q7D 07/25/24 08/04/24 History mg/0.5 mL subcutaneous pen injector (Zepbound) Synthroid 125 mcg tablet 125 mcg PO DAILY #90 tabs 07/29/24 08/04/24 Rx (levothyroxine) Past Med/Surg History Problem List Gallstones Diverticulosis large intestine w/o perforation or abscess w/o bleeding Overweight Tendinitis of left rotator cuff Neuropraxia of ulnar Endometriosis determined by laparoscopy (Chronic) s/p hysterectomy History of ovarian cyst (Chronic) Fatty infiltration of liver (Chronic) H/O diverticulitis of colon (Chronic) Dietary counseling and surveillance Obesity (Chronic) Dependent edema (Chronic) Migraine headache (Chronic) hx Chronic sinusitis (Chronic) Depression with anxiety (Chronic) hx-no current meds Dyslipidemia (Chronic) GERD without esophagitis (Chronic) med prn Hypothyroidism, postablative (Chronic) Vitamin D deficiency (Chronic) Medical History Migraine Gallstones Hypothyroidism GERD (gastroesophageal reflux disease) Diverticulosis large intestine w/o perforation or abscess w/o bleeding Depression with anxiety hx Family history of anesthesia complication daugther-"blood pressure kept dropping throughout procedure, had to keep giving medicine to bring it up" Graves disease (2013) s/p radioactive iodine treatment Surgical History History of esophagogastroduodenoscopy (EGD) History of endometrial ablation History of carpal tunnel release RT H/O sinus surgery History of colonoscopy History of wisdom tooth extraction History of total hysterectomy History of tubal ligation Family History Grandfather Alzheimer disease Lung cancer Grandmother Alzheimer disease Myocardial infarction Heart disease Uncle Colorectal cancer Mother Heart disease Other No family history of adverse response to anesthesia Denies family history of Ovarian cancer Prostate cancer Breast cancer Social History Smoking Status: Never smoker Tobacco Type: Cigarettes Second Hand Exposure: No; Do You Dip or Chew Tobacco: No; Tobacco Cessation Education Requested by Patient: No Hx Alcohol Use: Yes Alcohol type: hard liquor Alcohol Intake Frequency: Monthly or Less Hx Substance Use: No Preferred Language: Mongolian Communication Ability: Effective Visual Impairment: No Limitations Hearing Ability: Normal Stitchdowns Toe Former Required: No Beliefs That Will Affect Care: None marital status: Current Living Situation: Family current occupational status: employed current occupation: Stylist How many Children do You have Comment: 3 natural, one adopted, 2 step Other Information That Helps Us Care for You: No Feels Safe at Home: Yes Safety Concerns: Feels Safe At This Time Diet: low carbohydrate caffeine: Yes during the past year weight has: decreased > 10 lbs Dental Care, Regularly: Yes Seatbelt Use: always Sunscreen Use: Yes Assistive Devices: Glasses Review of Systems All systems reviewed & are unremarkable except as noted in HPI & below Physical Exam Constitutional: WD/WN, vitals as above no acute distress and not ill appearing Eyes: PERRL, conjunctivae normal, anicteric sclerae EOM intact bilaterally ENMT: external ear and nose normal, oropharynx normal Ears: no hearing impairment Neck: trachea midline, no thyromegaly Respiratory: normal respiratory effort; no respiratory distress and does not use accessory muscles Cardiovascular: Rate/Rhythm: regular rate and regular rhythm Gastrointestinal (Abdomen): normal bowel sounds, soft, nontender, no hepatosplenomegaly Skin: no rashes, warm and dry Psychiatric: Orientation: alert, oriented x 3 and cooperative Results & Data Vital Signs (Past 12 Hours) Vital Signs Temp Pulse Resp BP Pulse Ox O2 Del Method 08/04/24 06:02 36.6 C 89 20 124/77 96 Room Air
[2024-08-04] MEDS: CIPROFLOXACIN / D5W 400 MG/200 ML BAG IV SCH ×2 (07:13→18:32)
[2024-08-04] MEDS ORDERED: HYDROmorphone INJ 2 MG/ML SYR/VIAL ONE (08:14)
[2024-08-04] MEDS ORDERED: LARYING-O-JET KIT (LTA) ONE (08:17)
[2024-08-04] MEDS ORDERED: diphenhydrAMINE 50 MG/ML VIAL ONE (08:37)
[2024-08-04] MEDS ORDERED: PHENYLEPHRINE 100MCG/ML 10ML SYR IV ONE (08:39)
[2024-08-04] MEDS ORDERED: KETOROLAC 30 MG/ML VIAL ONE (09:24)
[2024-08-04] MEDS ORDERED: SUGAMMADEX SODIUM 200 MG/2 ML VIAL IV ONE (09:25)
[2024-08-04] MEDS: BUPIVACAINE/EPINEPHRINE 0.5% MPF 1:200,000 30 ML VIAL ONE (09:42)
--- NOTE | 2024-08-04 10:07 | Operative Report ---
PG Post Operative Report Pre & Post Diagnosis Operation Date: 08/04/24 07:15 Pre-Op Diagnosis: Diverticulosis large intestine without perforation or abscess without bleeding, Gallstones Post-Op Diagnosis: Diverticulosis large intestine without perforation or abscess without bleeding, Gallstones;adhesions I identified the patient and participated in the time-out.: Yes Procedure Operation Date: 08/04/24 07:15 Actual Procedures p Laparoscopic Sigmoid Colectomy, Cholecystectomy(Not Applicable), enterolysis - González Gray DO Surgeon González Gray DO Software Specialist fernandez Aguayo Estimated Blood Loss 100 Findings Consistent with Post-Op Diagnosis Specimens 1. gallbladder 2. sigmoid colon Description of Procedure After informed consent was obtained the patient was taken to the operating room and placed in supine position. After successful intubation a Bazan catheter was placed sterilely. The arms were tucked. The patient was placed in a low lithotomy position in yellowfin stirrups. The entire abdomen, rectum and perineum were sterilely prepped and draped in usual fashion. An infraumbilical incision was made with an 11 blade scalpel and carried down through the soft tissue using cautery. Anterior fascia was opened using cautery and two #0 Vicryl stay sutures were placed. Peritoneum was elevated using hemostats and incised under direct vision using a Metzenbaum scissor. A finger sweep was performed. A 12 mm Coles trocar was placed and the abdomen was insufflated to 18 mmHg. Laparoscope was inserted and the abdomen was examined in 360 degrees. A right lower quadrant 12 mm trocar was placed as well as a right mid abdominal 5 mm trocar. I began by examining the sigmoid colon. There were some adhesions in the pelvis presumably from her prior diverticulitis as well as hysterectomy. Both ovaries looked okay. There was some thickening and fat wrapping of a segment of the sigmoid colon. My attention then turned to perform the cholecystectomy first. I placed an additional subxiphoid 5 mm port. The patient was placed in a reverse Trendelenburg position and slightly airplaned to the left. The gallbladder was grasped and elevated superiorly and laterally. It was not inflamed. A [place] dissector was used to take down adhesions around the neck of the gallbladder. I was able to identify the cystic duct and skeletonized it. 2 clips were placed proximally 1 distally and it was transected using laparoscopic scissor. In similar fashion the cystic artery was skeletonized clipped and divided. The gallbladder was removed from the gallbladder fossa using cautery. It was placed into an Endo Catch bag and removed from the camera port site. At the end the procedure there was adequate hemostasis and no evidence of any bile leaks. My attention then turned to the colon resection. The patient was then placed in a Trendelenburg position and slightly airplaned to the right. I began by taking down the adhesions in the pelvis using blunt dissection sharp scissor lysis and small amounts of harmonic scalpel. These involve primarily the sigmoid colon ovaries small bowel and omentum. Once these were taken down I then began dividing the white line of Toldt using blunt dissection as well as the harmonic scalpel. We were able to identify the left ureter to keep it out of harm's way. I continued to take down the white line of Toldt down over the sacral promontory to the peritoneal reflection. There appeared to be an obvious probably 8 or 9 cm segment of sigmoid colon that had been involved with the inflammation. There was fat wrapping over this area. Proximal and distal to this was normal appearing large bowel. I made a small window in the mesentery distal to this inflamed area using the harmonic scalpel. Once I created the window I then used a MATHEW purple cartridge linear stapler to transect it. We then placed an additional left lower quadrant 5 mm trocar. I took down the mesentery of the sigmoid colon again using the harmonic scalpel. I marked a spot of normal colon proximal to the inflamed area using a marker. Once I had the mesentery completely taken down we removed the left lower quadrant trocar and widened this incision laterally and medially. After dividing the fascia was able to deliver the sigmoid colon out through this incision. We did towel off the incision to prevent infection. Bowel clamps were placed and the colon was divided and sent to pathology. I then used 2-0 silk to create a pursestring stitch. We measured the lumen of the colon which fit a 28 mm sizer rather easily. The anvil of a 28 mm circular stapler was advanced into the end of the bowel and this was secured using the pursestring suture. We trimmed any add itional fat at the site of anastomosis and then placed the anvil and bowel back into the abdominal cavity. At this point we changed our gloves. The fascia of the left lower quadrant was closed using 0 PDS in running fashion. I re- insufflated the abdomen. We suctioned out small amount of blood in the pelvis. My family practice physician assistant then brought in sizers through the rectum into the stump which went rather easily. The handle of the circular stapler was then brought in through the rectum and into the rectal stump. The spike was deployed anterior to the staple line. This was connected to the anvil. They were secured together and fired creating a circular functional end-to-end anastomosis. Both donuts were intact. The bowel laid nice and flat without any twisting or tension. We did fill the pelvis with water. A rigid proctoscope was advanced into the rectum which was then inflated under water. It was completely airtight with no evidence of any leakage. A final irrigation was performed. A 10 flat Patrick- De La Rosa drain was placed in the pelvis and brought out through the right lower quadrant trocar site. It was secured to the skin using 0 Vicryl. All the trocars were removed. I did look at the gallbladder fossa prior to removing the camera and there was adequate hemostasis and again no bile. After removing all the trocars the fascia of the camera port was closed using 0 Vicryl in [id number] fashion. All the wounds were thoroughly irrigated. The larger incision was closed using 3-0 Vicryl for deep layers and 4-0 Monocryl for skin. The smaller incisions were all closed using 4-0 Monocryl. Marcaine with epinephrine was injected around them for postoperative analgesia and skin glue used as a dressing. Patient was awakened extubated and transferred recovery in stable condition. My physician family practice physician assistant was present through the entire case was instrumental in assisting with removal of the gallbladder and running the camera the anastomosis wound closure and dressing placement. I attest to the content of the Intraoperative Record and any orders documented therein. Any exceptions are noted below.
[2024-08-04] MEDS: fentaNYL citrate PF 100 MCG/2 ML VIAL IV PRN (10:30)
[2024-08-04] MEDS ORDERED: MoRPHine SULFATE 2 MG/ML CARP IV PRN (11:44)
[2024-08-04] MEDS ORDERED: MoRPHine SULFATE 4 MG/ML 1 ML CARP\\VIAL IV PRN (11:44)
[2024-08-04] MEDS: ACETAMINOPHEN 1,000 MG/100 ML VIAL IV SCH (12:40)
[2024-08-04] MEDS: KETOROLAC TROMETHAMINE 15 MG/ML VIAL IV PRN (18:27)
[2024-08-05] MEDS: LEVOTHYROXINE SODIUM 125 MCG TABLET PO SCH (05:31)
--- NOTE | 2024-08-05 07:51 | Surgery Progress Note ---
Date of Service August 05, 2024 Assessment & Plan (1) S/P laparoscopic-assisted sigmoidectomy: Plan: POD#1 lap aleja and sigmoidectomy Labs this AM are pending. Vitals show HRs 100s, afebrile, BPs stable, on room air Making good urine, will plan on d/c cedeño this AM Awaiting labs, if hbg stable will start daily dvt ppx ORION drain to remain in place until dispo Will consider clears today while awaiting return of bowel function Encourage OOB and pulm toilet [facility] covering the wknd as above. doing well. if she does well overnight may do clears tomorrow. no acute issues. Admission and Anticipated Discharge Date Admission Date: August 04, 2024 Subjective Patient feeling okay this AM. Feels some pressure in lower abdomen like a sensation she has to void despite cedeño being in place. Pain otherwise tolerable. Denies nausea. No flatus/BM. Physical Exam Physical Exam: awake/alert, no distress Respiratory: normal respiratory effort Gastrointestinal (Abdomen): Inspection/Auscultation: + abdominal surgical incision (c/d/i with skin glue, some ecchymosis of LLQ incision) and + abdominal surgical drain present (serosang, 325cc documented since OR); abdomen not distended Percussion/Palpation: + abdomen tender (expected liana incisional discomfort) and abdomen soft Results & Data Vital Signs (Past 12 Hours) Vital Signs Temp Pulse Pulse Resp BP Pulse Ox O2 Del Method 08/05/24 04:17 98.6 F 102 H 16 L 16 130/79 94 Room Air 08/04/24 23:59 98.4 F 107 H 16 125/78 93 Room Air 08/04/24 20:23 98.4 F 106 H 16 118/76 94 Room Air PG Care Time/CCT Total # of Minutes Spent Total Time Spent with Patient: Total time spent is greater than 50% in coordination of care (as documented) at patient's floor/unit and/or counseling patient: Coding Level of Care Code 02366 Post Operative Follow-Up Diagnoses S/P laparoscopic-assisted sigmoidectomy Z90.49
[2024-08-05 08:06] LABS: Basophils # (auto) 0.02 K/uL (0.00-0.20); Basophils % (auto) 0.1 %; Eosinophils # (auto) 0.02 K/uL (0.00-0.50); Eosinophils % (auto) 0.1 %; Hematocrit (blood only) 32.9 % (37.0-47.0); Hemoglobin 11.9 g/dl (12.0-16.0); Immature Granulocytes # (auto) 0.05 K/uL (0.01-0.20); Immature Granulocytes % (auto) 0.4 %; Lymphocytes # (auto) 2.86 K/uL (1.20-3.40); Lymphocytes % (auto) 21.2 %; Mean Corpuscular Hemoglobin 29.6 pg (25.0-34.0); Mean Corpuscular Hgb Conc 36.2 g/dL (32.0-36.0); Mean Corpuscular Volume 81.8 fL (80.0-100.0); Mean Platelet Volume 10.1 fL (9.4-12.4); Monocytes # (auto) 0.98 K/uL (0.11-0.59); Monocytes % (auto) 7.3 %; Neutrophils # (auto) 9.57 K/uL (1.40-6.50); Neutrophils % (auto) 70.9 %; Platelet Count 298 K/uL (130-400); RDW Coefficient of Variation 11.9 % (11.5-14.5); RDW Standard Deviation 35.9 fL (36.4-46.3); Red Blood Count 4.02 M/uL (4.20-5.40)
[2024-08-05 08:51] LABS: BUN Creatinine Ratio 11.9 (10-20); Calcium 8.1 mg/dl (8.6-10.3); Creatinine Clr Calc Pharmacy 107.6 ml/min; Est GFR (African American) 124.7 ml/min; Est GFR (Non-African American) 107.6 ml/min; Potassium 2.7 mmol/L (3.5-5.1)
[2024-08-05] MEDS: D5W AND 1/2NSS + 20MEQ KCL 20 MEQ/1,000 ML BAG IV SCH (09:50)
[2024-08-05] MEDS: PANTOprazole 40 MG TAB PO SCH (11:29)
[2024-08-05] MEDS: POTASSIUM CHLORIDE CRTAB 20 MEQ TABCR PO STA (11:30)
[2024-08-05] MEDS: traMADol HCL 50 MG TABLET PO PRN (20:09)
[2024-08-05] MEDS: TOPIRAMATE 50 MG TAB PO SCH (20:11)
[2024-08-06 07:55] LABS: Basophils # (auto) 0.03 K/uL (0.00-0.20); Basophils % (auto) 0.3 %; Eosinophils % (auto) 1.1 %; Hematocrit (blood only) 33.2 % (37.0-47.0); Hemoglobin 11.2 g/dl (12.0-16.0); Immature Granulocytes # (auto) 0.03 K/uL (0.01-0.20); Immature Granulocytes % (auto) 0.3 %; Lymphocytes # (auto) 1.94 K/uL (1.20-3.40); Lymphocytes % (auto) 21.1 %; Mean Corpuscular Hemoglobin 28.9 pg (25.0-34.0); Mean Corpuscular Hgb Conc 33.7 g/dL (32.0-36.0); Mean Corpuscular Volume 85.8 fL (80.0-100.0); Mean Platelet Volume 9.8 fL (9.4-12.4); Monocytes # (auto) 0.84 K/uL (0.11-0.59); Monocytes % (auto) 9.1 %; Neutrophils # (auto) 6.26 K/uL (1.40-6.50); Neutrophils % (auto) 68.1 %; Platelet Count 251 K/uL (130-400); RDW Coefficient of Variation 12.4 % (11.5-14.5); RDW Standard Deviation 38.7 fL (36.4-46.3); Red Blood Count 3.87 M/uL (4.20-5.40)
[2024-08-06 08:08] LABS: BUN Creatinine Ratio 9.3 (10-20); Calcium 7.9 mg/dl (8.6-10.3); Creatinine Clr Calc Pharmacy 117.5 ml/min; Est GFR (African American) 128.4 ml/min; Est GFR (Non-African American) 110.8 ml/min; Potassium 3.7 mmol/L (3.5-5.1)
--- NOTE | 2024-08-06 12:07 | Surgery Progress Note ---
Date of Service August 06, 2024 Assessment & Plan (1) S/P laparoscopic-assisted sigmoidectomy: Plan: POD#2 lap aleja and sigmoidectomy passing flatus. Will advance to clears. Stop fluids ORION drain to remain in place until dispo Encourage OOB and pulm toilet Admission and Anticipated Discharge Date Admission Date: August 04, 2024 Subjective Patient feeling okay this AM. Feels some pressure in lower abdomen. Denies nausea. positive flatus Physical Exam Physical Exam: awake/alert, no distress Gastrointestinal (Abdomen): Inspection/Auscultation: + abdominal surgical incision (c/d/i with skin glue, some ecchymosis of LLQ incision) and + abdominal surgical drain present (serosang, 325cc documented since OR); abdomen not distended Percussion/Palpation: + abdomen tender (expected liana incisional discomfort) and abdomen soft Results & Data Vital Signs (Past 12 Hours) Vital Signs Temp Pulse Resp BP Pulse Ox O2 Del Method 08/06/24 08:28 36.6 C 87 18 117/75 100 Room Air
[2024-08-07 06:52] LABS: Basophils # (auto) 0.02 K/uL (0.00-0.20); Basophils % (auto) 0.2 %; Eosinophils # (auto) 0.24 K/uL (0.00-0.50); Eosinophils % (auto) 2.4 %; Hematocrit (blood only) 33.2 % (37.0-47.0); Hemoglobin 11.4 g/dl (12.0-16.0); Immature Granulocytes # (auto) 0.02 K/uL (0.01-0.20); Immature Granulocytes % (auto) 0.2 %; Lymphocytes # (auto) 2.13 K/uL (1.20-3.40); Lymphocytes % (auto) 21.5 %; Mean Corpuscular Hemoglobin 29.1 pg (25.0-34.0); Mean Corpuscular Hgb Conc 34.3 g/dL (32.0-36.0); Mean Corpuscular Volume 84.7 fL (80.0-100.0); Mean Platelet Volume 9.5 fL (9.4-12.4); Monocytes # (auto) 0.75 K/uL (0.11-0.59); Monocytes % (auto) 7.6 %; Neutrophils # (auto) 6.74 K/uL (1.40-6.50); Neutrophils % (auto) 68.1 %; Platelet Count 274 K/uL (130-400); RDW Coefficient of Variation 12.1 % (11.5-14.5); RDW Standard Deviation 37.1 fL (36.4-46.3); Red Blood Count 3.92 M/uL (4.20-5.40)
[2024-08-07 07:13] LABS: BUN Creatinine Ratio 13.7 (10-20); Calcium 8.2 mg/dl (8.6-10.3); Creatinine Clr Calc Pharmacy 124.5 ml/min; Est GFR (African American) 130.9 ml/min; Est GFR (Non-African American) 112.9 ml/min; Potassium 3.6 mmol/L (3.5-5.1)
--- NOTE | 2024-08-07 11:02 | Surgery Progress Note ---
Date of Service August 07, 2024 Assessment & Plan (1) S/P laparoscopic-assisted sigmoidectomy: Plan: POD#3 lap aleja and sigmoidectomy advance to soft diet ORION drain to remain in place until dispo Encourage OOB and pulm toilet possible home tomorrow Admission and Anticipated Discharge Date Admission Date: August 04, 2024 Subjective Patient feeling okay this AM. Feels some pressure in lower abdomen. Denies nausea. positive flatus Physical Exam Physical Exam: awake/alert, no distress Gastrointestinal (Abdomen): Inspection/Auscultation: + abdominal surgical i ncision (c/d/i with skin glue, some ecchymosis of LLQ incision) and + abdominal surgical drain present (serosang, 325cc documented since OR); abdomen not distended Percussion/Palpation: + abdomen tender (expected liana incisional discomfort) and abdomen soft Results & Data Vital Signs (Past 12 Hours) Vital Signs Temp Pulse Resp BP Pulse Ox O2 Del Method 08/07/24 07:45 36.8 C 97 H 14 100/64 98 Room Air 08/06/24 23:45 36.8 C 96 H 14 107/68 94 Room Air Laboratory Results 08/07/24 Range/Units 06:34 WBC 9.90 (4.8-10.8) K/ul RBC 3.92 L (4.20-5.40) M/uL Hgb 11.4 L (12.0-16.0) g/dl Hct 33.2 L (37.0-47.0) % MCV 84.7 (80.0-100.0) fL MCH 29.1 (25.0-34.0) pg MCHC 34.3 (32.0-36.0) g/dL RDW Std Deviation 37.1 (36.4-46.3) fL RDW Coeff of Yang 12.1 (11.5-14.5) % Plt Count 274 (130-400) K/uL MPV 9.5 (9.4-12.4) fL Immature Gran % (Auto) 0.2 % Neut % (Auto) 68.1 % Lymph % (Auto) 21.5 % Morrison % (Auto) 7.6 % Eos % (Auto) 2.4 % Baso % (Auto) 0.2 % Neut # (Auto) 6.74 H (1.40-6.50) K/uL Lymph # (Auto) 2.13 (1.20-3.40) K/uL Morrison # (Auto) 0.75 H (0.11-0.59) K/uL Eos # (Auto) 0.24 (0.00-0.50) K/uL Baso # (Auto) 0.02 (0.00-0.20) K/uL Immature Gran # (Auto) 0.02 (0.01-0.20) K/uL Sodium 138 (136-145) mmol/L Potassium 3.6 (3.5-5.1) mmol/L Chloride 110 H (98-107) mmol/L Carbon Dioxide 25 (21-32) mmol/L Anion Gap 3 (3-11) BUN 7 (6-23) mg/dl Creatinine 0.51 L (0.6-1.2) mg/dl Est Cr Clr Drug Dosing 124.5 ml/min Est GFR ( Amer) 130.9 ml/min Est GFR (Non-Af Amer) 112.9 ml/min BUN/Creatinine Ratio 13.7 (10-20) Glucose 94 (70-99(Fasting)) mg/dl Calcium 8.2 L (8.6-10.3) mg/dl
[2024-08-07 16:19] VITALS: RESP 16
[2024-08-08 07:12] LABS: Basophils # (auto) 0.03 K/uL (0.00-0.20); Basophils % (auto) 0.3 %; Eosinophils # (auto) 0.37 K/uL (0.00-0.50); Hematocrit (blood only) 31.9 % (37.0-47.0); Hemoglobin 11.3 g/dl (12.0-16.0); Immature Granulocytes # (auto) 0.04 K/uL (0.01-0.20); Immature Granulocytes % (auto) 0.4 %; Lymphocytes # (auto) 2.18 K/uL (1.20-3.40); Lymphocytes % (auto) 23.3 %; Mean Corpuscular Hemoglobin 29.7 pg (25.0-34.0); Mean Corpuscular Hgb Conc 35.4 g/dL (32.0-36.0); Mean Corpuscular Volume 83.7 fL (80.0-100.0); Monocytes # (auto) 0.74 K/uL (0.11-0.59); Monocytes % (auto) 7.9 %; Neutrophils # (auto) 5.98 K/uL (1.40-6.50); Neutrophils % (auto) 64.1 %; Platelet Count 288 K/uL (130-400); RDW Standard Deviation 36.4 fL (36.4-46.3); Red Blood Count 3.81 M/uL (4.20-5.40); White Blood Count 9.34 K/ul (4.8-10.8)
[2024-08-08 07:29] LABS: BUN Creatinine Ratio 15.7 (10-20); Calcium 8.3 mg/dl (8.6-10.3); Creatinine Clr Calc Pharmacy 124.5 ml/min; Est GFR (African American) 130.9 ml/min; Est GFR (Non-African American) 112.9 ml/min; Potassium 3.6 mmol/L (3.5-5.1)
[2024-08-08 07:43] VITALS: BP 105/67; PULSE 83; TEMP 98.2; O2SAT 97
--- NOTE | 2024-08-08 08:40 | Surgery Progress Note ---
Date of Service August 08, 2024 Assessment & Plan (1) S/P laparoscopic-assisted sigmoidectomy: Plan: Doing well. Okay for discharge Instructions discussed. Will remove ORION prior to discharge. Follow-up in 1 week. Pathology still pending Admission and Anticipated Discharge Date Admission Date: August 04, 2024 Subjective Patient seen. She is feeling well and would like to go home. She is eating and having no nausea no fevers Physical Exam Physical Exam: Alert no acute distress ORION drain with pink serous fluid Incisions look good Results & Data Vital Signs (Past 12 Hours) Vital Signs Temp Pulse Pulse Resp BP Pulse Ox O2 Del Method 08/08/24 07:42 36.8 C 83 16 105/67 97 Room Air 08/07/24 21:26 37.1 C 62 16 121/67 96 Room Air PG Care Time/CCT Total # of Minutes Spent Total Time Spent with Patient: Total time spent is greater than 50% in coordination of care (as documented) at patient's floor/unit and/or counseling patient: Coding Level of Care Code 48176 Post Operative Follow-Up Diagnoses S/P laparoscopic-assisted sigmoidectomy Z90.49
--- NOTE | 2024-08-10 11:37 | Discharge Summary ---
Date of Service August 08, 2024 Admission HPI Per Admitting Provider pt here for lap sigmoid for diverticular disease as well as cholecystectomy.. no major changes to her health history since I had seen her last in the office Principal Diagnosis s/p laparoscopic assisted sigmoidectomy s/p laparoscopic cholecystectomy Discharge Exam awake/alert, no distress Respiratory normal respiratory effort Gastrointestinal (Abdomen) Inspection/Auscultation: + abdominal surgical incision (c/d/i with skin glue; no signs of infection) and + abdominal surgical drain present (serousang) Percussion/Palpation: abdomen soft Discharge Data Allergies Allergy/AdvReac Type Severity Reaction Status Date / Time shellfish derived Allergy Severe Itchy/Lip Verified 08/04/24 06:08 Swelling/Throat Swelling amoxicillin [From Augmentin] AdvReac Severe Chest Pain Verified 08/04/24 06:08 clavulanic acid AdvReac Severe Chest Pain Verified 08/04/24 06:08 [From Augmentin] Procedures Performed Operation Date: 08/04/24 07:15 Actual Procedures p Laparoscopic Sigmoid Colectomy,(Not Applicable) - González Gray DO s Cholecystectomy(Not Applicable) - González Gray, Hospital Course (1) S/P laparoscopic-assisted sigmoidectomy: This is a 48yF who presented to the [facility] on 08/04/24 for an electively scheduled laparoscopic cholecystectomy and lap assisted sigmoidectomy with Dr. Gray. The patient tolerated the procedure well, see op note for full details. The patient was admitted under the surgery service and transferred to the med/surg floor in stable condition. She was ordered for IVF, sips/chips ,prn pain meds, cedeño catheter, and 24 hrs antibiotics. Postop day 1 her cedeño was removed and she was able to void without issues. She remained on IVF and sips/chips. Pain controlled on prn meds. Activity encouraged. On POD#2 she began having + bowel function, first with flatus, then eventually BM's. As her bowels opened up her diet was advanced from clears to fulls to low fiber. Pain was well controlled and incisions remained clean/dry/intact. Her ORION drain remained serosanguineous and was removed prior to discharge. On 08/08 the patient was deemed stable for discharge to home. low fiber tolerated, + bowel function, and pain controlled. She was instructed to follow up in the office within 2 weeks time. (2) Gallstones: Total Time Total Time Spent Total Time Spent (In Minutes): 15 Discharge Plan Discharge Items Patient Disposition: Home - Self-Care Reason For Visit: Diverticulosis Large Intestine Without Perforation Discharge Diagnosis: sigmoid colectomy cholecystectomy Activity: Per Instructions section Lifting: No more than 10 pounds Bathing Comment: may shower; no soaking in tubs/pools x 2 weeks Exercise/Sports: Wait until after follow-up appointment Driving/Machine Use: no driving while on narcotics for pain Non-emergency contact: Surgeon Call non-emergency contact if: you have any medication questions, your symptoms worsen, your pain is not controlled, your pain is unusual for you, you have a fever, your temperature is above 101.5, your wound has increased redness, your wound has increased drainage and your wound pain has increased Follow-up/Referrals: Bharati Ramirez MD [Primary Care Provider] - González Gray DO [Surgeon] - (please call to schedule follow up in clinic within 2 weeks) Diet: Low Fiber Diet Comment: low fiber Addtl Attending Provider Instructions: please continue on a low fiber diet until your follow up appointment may shower. no tub soaks you may use ibuprofen 600 mg every 8 hours as needed for discomfort you have glue on your incisions that will go away on it's own. Do not pick at it. Pending Studies at Discharge: Yes Studies:: surgical pathology Stand-Alone Forms: My [facility] Medications and DC Order Prescriptions: New tramadol 50 mg tablet 50 mg PO Q6H PRN (Reason: pain, for initial therapy, max 4 tabs/day) Qty: 20 0RF Continued levothyroxine [Synthroid] 125 mcg tablet 125 mcg PO DAILY Qty: 90 3RF omeprazole 20 mg capsule,delayed release(DR/EC) 20 mg PO DAILY PRN (Reason: Acid Reflux) Patient Comments: QAM valacyclovir 1 gram tablet 1,000 mg PO DAILY PRN (Reason: Cold Sores) topiramate 50 mg tablet 50 mg PO HS Qty: 30 3RF Patient Comments: HS-will start after weaning from Zepbound phentermine 37.5 mg tablet 37.5 mg PO QAM Patient Comments: "Don't take it every single day" Zepbound 15 mg/0.5 mL pen injector 15 mg SUBCUT Q7D Rx Instructions: Thursday levocetirizine [Xyzal] 5 mg Tablet 5 mg PO QAM triamterene-hydrochlorothiazid 37.5-25 mg tablet 1 tab PO QAM Patient Comments: QAM Discharge Orders: Discharge Order (Routine); Ordered 08/08/24 Ordered By: González Oglesby/Other Patient Handouts: Low-Fiber Diet Admission Data Admit Date/Time: 08/04/24 10:02 Attending Provider: González Gray Admit Provider: González Gray Primary Care Provider: Bharati Ramirez Other Interventions: Discharge Summary Assessment (RN) Last Done: 08/08/24 09:45 Coding Level of Care Code 63667 IN/OBS DISCH 30 MIN/LESS Diagnoses S/P laparoscopic-assisted sigmoidectomy Z90.49 Gallstones K80.20
== END 2024-08-08 10:40 | disposition home or self-care (01) | DRG 331 ==
LOC: ASU 05:42 → 3W 10:02
DX: K80.20 Calculus of gallbladder without cholecystitis without obstruction; E03.9 Hypothyroidism, unspecified; K57.30 Diverticulosis of large intestine without perforation or abscess without bleeding; K66.0 Peritoneal adhesions (postprocedural) (postinfection); Z88.1 Allergy status to other antibiotic agents